=== PATIENT | male | born 1965 | race Caucasian/White ===

== ENCOUNTER 2022-03-04 06:14 | Outpatient (CLI) | payer OTHER | END 2022-03-04 06:15 | disposition critical access hospital (66) | LOC: EMS 06:14 | DX: R53.1 Weakness (principal); R20.0 Anesthesia of skin; R42 Dizziness and giddiness | CPT/HCPCS: A0425; A0427 ==

== ENCOUNTER 2022-03-04 06:26 | Emergency (ER) | payer OTHER ==
--- NOTE | 2022-03-04 06:37 | ED Physician Documentation ---
PD HPI FOCAL NEURO - Stated complaint Stated Complaint: Code Stroke - Additional information Additional information: Patient is 56-year-old male presenting With acute onset focal neurologic deficits.Last known well 30 this morning. Presents via EMS from home. States was taking his regular morning shower when he became acutely weak in his left upper, left lower extremity. Was unable to stand and fell in the shower. Uncertain whether or not he hit his head. He denies any loss of consciousness. Denies use of blood thinning medications. Reports it has been greater than 20 years since the last time he was seen by a physician. Review of Systems Ten Systems: 10 systems reviewed and negative Constitutional: denies: Fever Eyes: denies: Loss of vision Ears: denies: Loss of hearing Nose: denies: Rhinorrhea / runny nose Throat: denies: Dental pain / toothache Cardiac: denies: Chest pain / pressure Respiratory: denies: Dyspnea GI: denies: Abdominal Pain : denies: Dysuria Skin: denies: Rash Musculoskeletal: denies: Neck pain Neurologic: reports: Generalized weakness, Focal weakness, Numbness PD PAST MEDICAL HISTORY - Present Medications Home Medications: Ambulatory Orders Medication Instructions Recorded Confirmed No Known Home Medications 03/04/22 03/04/22 - Allergies Allergies/Adverse Reactions: Allergies Allergy/AdvReac Type Severity Reaction Status Date / Time No Known Drug Allergies Allergy Verified 03/04/22 06:36 PD ED PE NORMAL - Vitals Vital signs reviewed: Yes - General General: Alert and oriented X 3, No acute distress, Other (Morbidly obese) - HEENT HEENT: Atraumatic, PERRL, EOMI, Ears normal, Moist mucous membranes - Neck Neck: Supple, no meningeal sign, No bony TTP - Cardiac Cardiac: RRR, No gallop - Respiratory Respiratory: No respiratory distress - Abdomen Abdomen: Normal bowel sounds, Non tender - Male Male : Deferred - Rectal Rectal: Deferred - Back Back: No CVA TTP - Neuro Neuro: Alert and oriented X 3, 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 Extinction to sensation noted in the left upper and left lower extremity.) - Psych Psych: Normal mood NIHSS - Level of Consciousness Level of consciousness: (0) Alert, Keenly responsive LOC Questions: (0) Answers both Q's correct LOC Commands: (0) Performs both correctly - Gaze Best Gaze: (0) Normal - Visual Visual: (0) No loss - Facial Palsy Facial Palsy: (0) Normal, symmetrical movement - Motor Arms (both separate) Motor Arm (right): (0) No drift Motor Arm (left): (4) No movement - Motor Legs (both separate) Motor Leg (right): (0) No drift Motor Leg (left): (4) No movement - Limb Ataxia Limb Ataxia: (1) Present in 1 limb - Sensory Sensory: (2) Jnqtxt-fl-rieur loss - Best Language Best Language: (0) No aphasia - Dysarthria Dysarthria: (0) Normal - Extinction and Inattention (formally neg Extinction and inattention: (1) Visual,tactile,auditory,spatial, or personal inattention - Total Score/Results Total Score/Result: 12 Results - Vitals Vitals: Vital Signs - 24 hr 03/04/22 03/04/22 06:20 06:41 Temperature 35.8 C L Heart Rate 84 Respiratory 16 17 Rate Blood Pressure 173/96 H O2 Saturation 96 Oxygen O2 Source Room air - EKG (time done) 0657 Rate: Rate (enter#) (78) Rhythm: NSR [place]: Normal Intervals: Normal [place] QRS: Normal Ischemia: Normal ST segments Compare to prior EKG: Old EKG unavailable Computer interpretation: Agree with computer PD MEDICAL DECISION MAKING - ED course Complexity details: reviewed results, d/w patient, d/w managed services consultant ED course: Patient is 56-year-old male presenting to the emergency department with acute onset paralysis of his left upper and left lower extremity. Stroke alert initiated on arrival. CT head demonstrates left frontoparietal parenchymal bleed. EKG nonacute with regular sinus rhythm. Labs including renal function testing, INR pending. Case was discussed with telestroke service and per their recommendation metoprolol ordered for goal systolic blood pressure less than 140. At this time will be signing the patient out to the oncoming physician, please see their documentation for further detail. Departure - Departure Clinical Impression: Hemorrhagic stroke
[2022-03-04] MEDS ORDERED: METOPROLOL 5 MG/5 ML VIAL IVP STA ×2 (06:46→07:03)
[2022-03-04 07:05] LABS: INR 1.1 (0.8-1.2); PT - PROTHROMBIN TIME 12.3 secs (9.9-12.6)
[2022-03-04 07:11] LABS: ALBUMIN 4.2 g/dL (3.2-5.5); ALBUMIN/GLOBULIN RATIO 1.4 (1.0-2.2); ALKALINE PHOSPHATASE 79 IU/L (42-121); ALT ALANINE AMINOTRANSFERASE 35 IU/L (10-60); AST ASPARTATE AMINOTRANSFERASE 27 IU/L (10-42); BILIRUBIN,TOTAL 0.9 mg/dL (0.2-1.0); BUN - BLOOD UREA NITROGEN 18 mg/dL (6-20); CALCIUM 9.2 mg/dL (8.5-10.3); CARBON DIOXIDE - CO2 26 mmol/L (21-32); CHLORIDE 96 mmol/L (101-111); CREATININE 0.9 mg/dL (0.6-1.2); ETOH - ETHANOL < 5.0 mg/dL; GFR - MDRD 87 (>89); GLUCOSE 285 mg/dL (70-100); LIPASE 27 U/L (22-51); POTASSIUM 4.2 mmol/L (3.5-5.0); SODIUM 133 mmol/L (135-145); TOTAL PROTEIN 7.1 g/dL (6.7-8.2)
[2022-03-04 07:13] LABS: BASOPHILS # (AUTO) 0.1 10^3/uL (0.0-0.1); BASOPHILS % (AUTO) 0.7 %; EOSINOPHILS # (AUTO) 0.1 10^3/uL (0.0-0.7); EOSINOPHILS % (AUTO) 1.2 %; HCT - HEMATOCRIT 48.2 % (42.0-52.0); HGB - HEMOGLOBIN 16.1 g/dL (14.0-18.0); LYMPHOCYTES # (AUTO) 2.2 10^3/uL (1.5-3.5); LYMPHOCYTES % (AUTO) 21.3 %; MEAN CORPUSCULAR HEMOGLOBIN 28.9 pg (27.0-31.0); MEAN CORPUSCULAR HGB CONC 33.4 g/dL (32.0-36.0); MEAN CORPUSCULAR VOLUME 86.5 fL (80.0-94.0); MEAN PLATELET VOLUME 9.7 fL (7.4-11.4); MONOCYTES # (AUTO) 0.6 10^3/uL (0.0-1.0); NEUTROPHILS # (AUTO) 7.2 10^3/uL (1.5-6.6); NEUTROPHILS % (AUTO) 69.8 %; PLT - PLATELET COUNT 230 10^3/uL (130-450); RED BLOOD COUNT 5.57 10^6/uL (4.70-6.10); WHITE BLOOD COUNT 10.3 x10^3/uL (4.8-10.8)
[2022-03-04] MEDS ORDERED: NICARDIPINE HCL 25 MG in SODIUM CHLORIDE 0.9% 240 ML IV ONE (08:00)
[2022-03-04] MEDS ORDERED: NICARDIPINE HCL 25 MG in SODIUM CHLORIDE 0.9% 240 ML IV SCH (08:00)
--- NOTE | 2022-03-04 08:09 | CT Report ---
PROCEDURE: Head W/O Stroke Protocol INDICATIONS: Neuro deficit, acute, stroke suspected TECHNIQUE: Noncontrast 4.5 mm thick angled axial sections acquired from the foramen magnum to the vertex, with c oronal reformats. For radiation dose reduction, the following was used: automated exposure control, adjustment of mA and/or kV according to patient size. COMPARISON: None. FINDINGS: Image quality: Excellent. CSF spaces: Basal cisterns are patent. No extra-axial fluid collections. Ventricles are normal in size and shape. Brain: No midline shift. There is a moderate-sized acute intracranial, parenchymal hemorrhage involv ing the right frontoparietal lobe with adjacent vasogenic edema subtle leftward midline shift. No ass ociated ventriculomegaly. Image measures approximately 4.3 x 2.4 cm in axial cross sectional dimensio n and 3.6 cm in craniocaudal dimension. Dickens-white matter interface is normal. Skull and face: Calvarium and visualized facial bones are intact, without suspicious lesions. Sinuses: Visualized sinuses and mastoids are clear. IMPRESSION: Moderate-sized acute right frontoparietal parenchymal hemorrhage with associated vasogen ic edema and subtle leftward shift of midline structures. Findings are concordant with preliminary report by the overnight radiologist. The clinical team is al ready aware of the acute findings at time of study dictation. This study fulfills neurological imaging criteria for inclusion or exclusion of acute stroke therapie s based on available published neurological imaging guidelines. Reviewed by: Vinny Vinson MD on 03/04/2022 8:07 AM PDT Approved by: Vinny Vinson MD on 03/04/2022 8:07 AM PDT Station ID: [id number]
[2022-03-04 08:34] VITALS: BP 142/87
[2022-03-04 08:37] LABS: B. PARAPERTUSSIS- RESP PCR PAN NOT DETECTED; B. PERTUSSIS- RESP PCR PANEL NOT DETECTED; C. PNEUMONIAE- RESP PCR PANEL NOT DETECTED; CORONAVIRUS 229E-RESP PCR NOT DETECTED; CORONAVIRUS HKU1-RESP PCR NOT DETECTED; CORONAVIRUS NL63-RESP PCR NOT DETECTED; CORONAVIRUS OC43-RESP PCR NOT DETECTED; HUMAN METAPNEUMOVIRUS NOT DETECTED; INFLUENZA A- RESP PCR PANEL NOT DETECTED; INFLUENZA B - RESP PCR PANEL NOT DETECTED; M. PNEUMONIAE- RESP PCR PANEL NOT DETECTED; PARAINFLUENZA VIRUS 1 NOT DETECTED; PARAINFLUENZA VIRUS 2 NOT DETECTED; PARAINFLUENZA VIRUS 3 NOT DETECTED; PARAINFLUENZA VIRUS 4 NOT DETECTED; RHINOVIRUS/ENTEROVIRUS NOT DETECTED; RSV- RESP PCR PANEL NOT DETECTED; SARS-CoV-2 -RESP PCR PANEL NOT DETECTED
--- NOTE | 2022-03-04 09:16 | CT Report ---
PROCEDURE: ANGIO HEAD W/WO INDICATIONS: left sided paralysis CONTRAST: IV CONTRAST: Optiray 320 ml: 100 PO CONTRAST: *NO PO CONTRAST TECHNIQUE: Precontrast 4.5 mm thick angled axial sections acquired from the foramen magnum to the vertex. Afte r the administration of intravenous contrast, 1 mm thick sections acquired through the [place] of [place] is. Postcontrast 4.5 mm thick sections then re-acquired from the foramen magnum to the vertex. 3-di mensional kombeyt-vkddvskll-anueunbhnt (MIP) and/or volume rendering reformats were acquired of the c entral intracranial vasculature. For radiation dose reduction, the following was used: automated ex posure control, adjustment of mA and/or kV according to patient size. COMPARISON: CT head without contrast dated 03/04/2022 FINDINGS: Image quality: Excellent. Anterior circulation: Intracranial internal carotid arteries are normal in size and flow. The flow within the paired anterior cerebral arteries is normal and symmetric. The flow within the middle cer ebral arteries is normal and symmetric. The anterior communicating artery is seen. No aneurysms are seen. Posterior circulation: Distal right vertebral artery is diffusely diminutive. Normal caliber distal l eft vertebral artery. They join to form a normal basilar artery. Flow within the posterior cerebral a rteries is normal and symmetric. No aneurysms are seen. CSF spaces: Ventricles are normal in size and shape. Basal cisterns are patent. No extra-axial flu id collections. Brain: Acute right posterior frontoparietal hemorrhage measuring 4.1 x 2.0 x 4.4 cm. There is a focal high density round area within the area of parenchymal hemorrhage that is present during the CT jayce ogram, consistent with active extravasation into the area of hemorrhage. Reference image 107/5 and im age 124/12. Mass effect on the right lateral ventricle. Skull and face: Calvarium and facial bones appear intact, without suspicious lesions. Sinuses: Visualized sinuses and mastoids are clear. IMPRESSION: 1. Acute right posterior frontoparietal hematoma, with active extravasation during the CT angiogram. 2. Mass effect on the ipsilateral lateral ventricle. 3. Otherwise unremarkable CT angiogram of the head. Findings are concordant with preliminary interpretation provided by [facility]. Reviewed by: Ambrocio Salcedo MD on 03/04/2022 9:15 AM PDT Approved by: Ambrocio Salcedo MD on 03/04/2022 9:15 AM PDT Station ID: [id number]
--- NOTE | 2022-03-04 09:20 | CT Report ---
PROCEDURE: ANGIO NECK W INDICATIONS: Left sided paralysis CONTRAST: IV CONTRAST: Optiray 320 ml: 100 PO CONTRAST: *NO PO CONTRAST TECHNIQUE: After the administration of intravenous contrast, 1.5 mm axial sections acquired from the aortic arch to the [place] of [place]. Coronal 3-D maximum intensity projection (MIP) and/or volume rendering ref ormats were then performed. For radiation dose reduction, the following was used: automated exposur e control, adjustment of mA and/or kV according to patient size. COMPARISON: CTA head from the same date, in which there is a large posterior left frontotemporal acu te hemorrhage. FINDINGS: Image quality: Excellent. Carotid system: The great vessels demonstrate a conventional anatomy as they arise from the aortic a rch. The origins of the common carotid arteries appear patent. The common carotid arteries demonstr ate normal calibers and courses. The bifurcation regions appear normal bilaterally. The internal ca rotid arteries demonstrate normal caliber and course. Posterior circulation: The origins of the vertebral arteries appear patent. The more superior porti ons of the vertebral arteries demonstrate normal course and caliber. They join to form a normal appe aring basilar artery. Soft tissues: Visualized neck soft tissues demonstrate no suspicious abnormalities. Thyroid is unre markable. Bones: No suspicious bony lesions. Visualized cervical spine appears normally aligned. IMPRESSION: 1. Unremarkable CTA neck. Patent carotids. Comment: Please refer to separate report for CTA head. Findings are concordant with preliminary interpretation provided by [facility]. The estimate of stenosis included in the report of the imaging study was calculated using the NASCET method CLINICAL RECOMMENDATION STATEMENTS: In patients <35 years with an ITN detected on CT, MRI, or extrathyroidal ultrasound, the Committee re commends further evaluation with dedicated thyroid ultrasound if the nodule is "e1 cm and has no susp icious imaging features, and if the patient has normal life expectancy. In patients "e35 years with an ITN detected on CT, MRI, or extrathyroidal ultrasound, the Committee r ecommends further evaluation with dedicated thyroid ultrasound if the nodule is "e1.5 cm and has no s uspicious imaging features, and if the patient has normal life expectancy. (ACR, 2014) Reviewed by: Ambrocio Salcedo MD on 03/04/2022 9:19 AM PDT Approved by: Ambrocio Salcedo MD on 03/04/2022 9:19 AM PDT Station ID: [id number]
== END 2022-03-04 08:45 | disposition short-term general hospital (02) ==
LOC: ED 06:26
DX: I61.9 Nontraumatic intracerebral hemorrhage, unspecified (principal); Z20.822 Contact with and (suspected) exposure to COVID-19
CPT/HCPCS: 36415; 80053; 80320; 83690; 85025; 85610; 87633; 93005; 96374; 96375; 99284

== ENCOUNTER 2022-08-25 08:19 | Outpatient (CLI) | payer OTHER | END 2022-08-25 08:20 | disposition critical access hospital (66) | LOC: EMS 08:19 | DX: R56.9 Unspecified convulsions (principal) | CPT/HCPCS: A0425; A0429 ==

== ENCOUNTER 2022-08-25 08:35 | Emergency (ER) | payer OTHER ==
--- NOTE | 2022-08-25 08:48 | ED Physician Documentation ---
PD HPI SEIZURE - Stated complaint Stated Complaint: POST SZ - History obtained from History obtained from: Patient, EMS - Additional information Additional information: Patient is a 57-year-old male with a history of right sided intraparenchymal hemorrhage in February 2022 with residual left-sided deficits presenting for evaluation of a seizure. Patient was at home and per EMS his nephew noted that he had contracture of his left upper extremity and turned towards his left and was nonverbal for approximately 1 to 2 minutes. He appeared confused and postictal afterwards and at the time of EMS arrival was coming back to his baseline. EMS did not witness any other episodes. Patient denies recent illness or any trauma. He denies a headache. He denies chest pain, difficulty breathing, recent URI symptoms, vomiting, diarrhea or dysuria. On review of outside records, patient was seen by Dr. Renee Anaya with the [facility] stroke clinic on July 22, 2022.He presented in February 2022 with left-sided weakness and found to have a right frontoparietal intraparenchymal hemorrhage with an unclear etiology although hypertension was considered. He was started on antihypertensives and also found to be diabetic at that time. James n was to have a repeat MRI brain with and without contrast.Also plan to follow back up in 3 to 6 months. Review of Systems Constitutional: denies: Fever Cardiac: denies: Chest pain / pressure Respiratory: denies: Dyspnea GI: denies: Abdominal Pain : denies: Dysuria Musculoskeletal: denies: Back pain Neurologic: reports: Seizure PD PAST MEDICAL HISTORY - Past Surgical History Past Surgical History: No - Present Medications Home Medications: Ambulatory Orders Medication Instructions Recorded Confirmed Levetiracetam [Keppra] 1,000 mg PO BID #60 tablet 08/25/22 cephALEXin [Keflex] 500 mg PO Q6H #28 cap 08/25/22 - Allergies Allergies/Adverse Reactions: Allergies Allergy/AdvReac Type Severity Reaction Status Date / Time No Known Drug Allergies Allergy Verified 08/25/22 08:46 - Social History Does the pt smoke?: No Smoking Status: Never smoker Does the pt drink ETOH?: Yes Does the pt have substance abuse?: No - Immunizations Immunizations are current?: No - POLST Patient has POLST: No PD ED PE NORMAL - General General: Alert and oriented X 3, No acute distress, Well developed/nourished - HEENT HEENT: Atraumatic, PERRL, Moist mucous membranes, Pharynx benign (No signs of tongue bite or oral injury) - Neck Neck: Supple, no meningeal sign - Cardiac Cardiac: RRR - Respiratory Respiratory: No respiratory distress, Clear bilaterally - Abdomen Abdomen: Soft, Non tender, Non distended - Derm Derm: Warm and dry - Extremities Extremities: No deformity - Neuro Neuro: Alert and oriented X 3, 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 No: No motor deficit, No sensory deficit Results - Vitals Vitals: Vital Signs - 24 hr 08/25/22 08/25/22 08/25/22 08:46 08:54 13:46 Temperature 36.7 C 36.4 C L Heart Rate 91 84 81 Respiratory 18 22 20 Rate Blood Pressure 188/121 H 176/108 H 158/100 H O2 Saturation 100 98 100 08/25/22 08/25/22 14:19 16:00 Temperature Heart Rate 76 83 Respiratory 17 18 Rate Blood Pressure 154/90 H 150/95 H O2 Saturation 98 98 Oxygen O2 Source Room air - EKG (time done) 0856 Rate: Rate (enter#) (85) Rhythm: NSR Ischemia: No: ST elevation c/w ischemia - Labs Labs: Laboratory Tests 08/25/22 08/25/22 08/25/22 08:55 08:55 08:55 WBC 14.7 H RBC 5.53 Hgb 15.1 Hct 47.0 MCV 85.0 MCH 27.3 MCHC 32.1 RDW 13.2 Plt Count 284 MPV 8.6 Neut # (Auto) 10.9 H Lymph # (Auto) 2.4 Avery # (Auto) 0.8 Eos # (Auto) 0.4 Baso # (Auto) 0.1 Absolute Nucleated RBC 0.00 Nucleated RBC % 0.0 PT 12.2 INR 1.1 Sodium 137 Potassium 4.1 Chloride 103 Carbon Dioxide 24 Anion Gap 10.0 BUN 20 Creatinine 0.8 Estimated GFR (MDRD) 99 Glucose 146 H Calcium 9.2 Total Bilirubin 0.7 AST 16 ALT 13 Alkaline Phosphatase 77 Total Protein 7.6 Albumin 3.7 Globulin 3.9 Albumin/Globulin Ratio 0.9 L Urine Color Urine Clarity Urine pH Ur Specific Simpson Urine Protein Urine Glucose (UA) Urine Ketones Urine Occult Blood Urine Nitrite Urine Bilirubin Urine Urobilinogen Ur Leukocyte Esterase Urine RBC Urine WBC Urine WBC Clumps Ur Squamous Epith Cells Urine Bacteria Ur Microscopic Review Urine Culture Comments 08/25/22 09:50 WBC RBC Hgb Hct MCV MCH MCHC RDW Plt Count MPV Neut # (Auto) Lymph # (Auto) Avery # (Auto) Eos # (Auto) Baso # (Auto) Absolute Nucleated RBC Nucleated RBC % PT INR Sodium Potassium Chloride Carbon Dioxide Anion Gap BUN Creatinine Estimated GFR (MDRD) Glucose Calcium Total Bilirubin AST ALT Alkaline Phosphatase Total Protein Albumin Globulin Albumin/Globulin Ratio Urine Color YELLOW Urine Clarity SL. CLOUDY Urine pH 6.5 Ur Specific Simpson 1.020 Urine Protein NEGATIVE Urine Glucose (UA) NEGATIVE Urine Ketones NEGATIVE Urine Occult Blood TRACE-INTA Urine Nitrite POSITIVE H Urine Bilirubin NEGATIVE Urine Urobilinogen 0.2 (NORMAL) Ur Leukocyte Esterase SMALL H Urine RBC 0-5 Urine WBC >25 H Urine WBC Clumps PRESENT Ur Squamous Epith Cells NONE SEEN Urine Bacteria Many H Ur Microscopic Review INDICATED Urine Culture Comments INDICATED PD Medical Decision Making - ED course Complexity details: reviewed results, re-evaluated patient, d/w patient, d/w family (Patient's nephew) ED course: Patient was evaluated after a seizure. He has returned to his baseline and has not had further episodes while here. His vital signs have appeared stable. On exam he continues to have left-sided weakness which is residual from his prior stroke and does not have any new deficits. His labs were obtained and significant for urine analysis concerning for infection. Per the nephew, patient was treated for an infection in the urine when he had his stroke last February. Patient denies dysuria but does report having some urinary frequency. I feel this is important to treat at this time as infection could have lowered his seizure threshold at least until the urine culture returns. A CT scan of the brain was obtained Which I reviewed and shows an area of edema and MRI was recommended. His outpatient neurologist had also wanted an MRI with and without contrast and so I felt it to be important to obtain today to rule out an underlying mass which could have caused his seizure today.The MRI was obtained and I did review the findings with [facility] neurology.Patient was given a loading dose of Keppra and continued on Keppra as an outpatient. He will follow-up with his neurologist. His nephew who helps care for him and goes to his appointments was also present for the majority of our conversations and understands the discharge instructions. He is also advised on seizure precautions with no driving, swimming, bathing alone.Patient and nephew are counseled on concerning symptoms to return for. 1455 - Discussed with Dr. Jace Moreira of [facility] neurology. Reviewed patient's past history including hemorrhagic stroke, residual deficits and today's story with first-time seizure. Also reviewed MRI results and images were pushed to [facility] for Dr. Moreira to also review. He recommends giving the patient a loading dose of Keppra of 3 g and then having the patient continue on 1000 mg twice daily. He has also reviewed the MRI and at this time does not feel patient needs transfer or other intervention. He recommends having close follow-up with patient's neurologist and he will also pass on a message to Dr. Anaya. - Consults Consults: Consulted (name) (Dr. Jace Moreira ([facility] neurology)) Departure - Departure Disposition: 01 Home, Self Care Clinical Impression: New onset seizure, Urinary tract infection Condition: Stable Instructions: ED Seizure New Onset Unk Cause, ED UTI Cystitis Male Prescriptions: cephALEXin [Keflex] 500 mg PO Q6H #28 cap Levetiracetam [Keppra] 1,000 mg PO BID #60 tablet Comments: You were evaluated after a first-time seizure. This could be from your hemorrhagic stroke. After obtaining an MRI I did review the images with a neurologist at [facility] named Dr. Moreira. Based on his recommendations we have started you on an antiseizure medications called Keppra. You will take this twice a day. You should also have close follow-up with your neurologist, Dr. Anaya. Your urine is also concerning for an infection which may have lowered your seizure threshold and so I am going to treat you with an antibiotic.If it anytime you have any new or worsening symptoms please consider return to the ER. Because you have had a seizure I would not recommend driving. I would also recommend not swimming or taking a bath in a bathtub alone until you are cleared by a neurologist. I have sent your prescriptions to [facility] in [place]. MRI RESULTS IMPRESSION: Linear focal enhancement with surrounding old blood products, gliosis and cystic encephalomalacia in the posterior right parietal lobe. Possible peripheral cerebral edema present, but no sulcal effacement, mass effect or midline shift. Consider 3-4 month follow-up to assess for interval change. MR spectroscopy could also further evaluate if available
[2022-08-25 09:00] LABS: BASOPHILS # (AUTO) 0.1 10^3/uL (0.0-0.1); BASOPHILS % (AUTO) 0.4 %; EOSINOPHILS # (AUTO) 0.4 10^3/uL (0.0-0.7); HGB - HEMOGLOBIN 15.1 g/dL (14.0-18.0); LYMPHOCYTES # (AUTO) 2.4 10^3/uL (1.5-3.5); LYMPHOCYTES % (AUTO) 16.3 %; MEAN CORPUSCULAR HEMOGLOBIN 27.3 pg (27.0-31.0); MEAN CORPUSCULAR HGB CONC 32.1 g/dL (32.0-36.0); MEAN PLATELET VOLUME 8.6 fL (7.4-11.4); MONOCYTES # (AUTO) 0.8 10^3/uL (0.0-1.0); MONOCYTES % (AUTO) 5.5 %; NEUTROPHILS # (AUTO) 10.9 10^3/uL (1.5-6.6); NEUTROPHILS % (AUTO) 74.4 %; PLT - PLATELET COUNT 284 10^3/uL (130-450); RED BLOOD COUNT 5.53 10^6/uL (4.70-6.10); RED CELL DISTRIBUTION WIDTH 13.2 % (12.0-15.0); WHITE BLOOD COUNT 14.7 x10^3/uL (4.8-10.8)
[2022-08-25 09:08] LABS: INR 1.1 (0.8-1.2); PT - PROTHROMBIN TIME 12.2 secs (9.9-12.6)
[2022-08-25 09:12] LABS: POTASSIUM 4.1 mmol/L (3.5-5.0)
[2022-08-25 09:13] LABS: ALBUMIN 3.7 g/dL (3.2-5.5); ALBUMIN/GLOBULIN RATIO 0.9 (1.0-2.2); BILIRUBIN,TOTAL 0.7 mg/dL (0.2-1.0); CALCIUM 9.2 mg/dL (8.5-10.3); CREATININE 0.8 mg/dL (0.6-1.2); TOTAL PROTEIN 7.6 g/dL (6.7-8.2)
--- NOTE | 2022-08-25 09:34 | XRAY Report ---
PROCEDURE: Chest 1 View X-Ray INDICATIONS: seizure TECHNIQUE: One view of the chest was acquired. COMPARISON: None. FINDINGS: Surgical changes and devices: None. Lungs and pleura: No pleural effusions or pneumothorax. Lungs are clear. Mediastinum: Mediastinal contours appear normal. Heart size is normal. Bones and chest wall: No suspicious bony lesions. Overlying soft tissues appear unremarkable. IMPRESSION: No evidence of acute pulmonary process. Reviewed by: Ambrocio Salcedo MD on 08/25/2022 9:32 AM [facility] Approved by: Ambrocio Salcedo MD on 08/25/2022 9:32 AM [facility] Station ID: [id number]
--- NOTE | 2022-08-25 09:54 | CT Report ---
PROCEDURE: HEAD WO INDICATIONS: h/o hemorrhagic CVA; new onset seizure TECHNIQUE: Noncontrast 4.5 mm thick angled axial sections acquired from the foramen magnum to the vertex. For r adiation dose reduction, the following was used: automated exposure control, adjustment of mA and/or kV according to patient size. COMPARISON: 03/04/2022. FINDINGS: Image quality: Excellent. CSF spaces: Basal cisterns are patent. No extra-axial fluid collections. Ventricles are normal in size and shape. Brain: No midline shift. No intracranial masses or hemorrhage. There is abnormality in the right fr ontal region and parietal region which appears to represent vasogenic edema which is wider spread cristina n on the previous study, which contain hemorrhage. Findings are suspicious for possible occult intrac ranial mass. No acute hemorrhage. Skull and face: Calvarium and visualized facial bones are intact, without suspicious lesions. Sinuses: Visualized sinuses and mastoids are clear. IMPRESSION: 1. The appearance of the para midline right posterior frontal lobe and parietal lobe is suspicious fo r vasogenic edema. Question underlying occult mass. Comment: Recommend brain MRI with and without contrast if there are no contraindications. If there ar e contraindications to MRI, would recommend CT head with contrast. Reviewed by: Ambrocio Salcedo MD on 08/25/2022 9:52 AM [facility] Approved by: Ambrocio Salcedo MD on 08/25/2022 9:52 AM PST Station ID: [id number]
[2022-08-25 10:03] LABS: BILIRUBIN,URINE NEGATIVE (NEGATIVE); GLUCOSE, URINE (UA) NEGATIVE (NEGATIVE); KETONES,URINE (UA) NEGATIVE (NEGATIVE); LEUKOCYTE ESTERASE, URINE SMALL (NEGATIVE); NITRITE,URINE POSITIVE (NEGATIVE); OCCULT BLOOD,URINE TRACE-INTA (NEGATIVE); PH,URINE 6.5 PH (5.0-7.5); PROTEIN,URINE NEGATIVE (NEGATIVE); UROBILINOGEN,URINE 0.2 (NORMAL) E.U./dL (NORMAL)
[2022-08-25 10:13] LABS: CLARITY,URINE SL. CLOUDY (CLEAR); RBC,URINE 0-5 /HPF (0-5); SQUAMOUS EPITHELIAL CELL,UR NONE SEEN (<= Few); WBC CLUMPS,URINE PRESENT; WBC,URINE >25 /HPF (0-3)
[2022-08-25 10:14] LABS: BACTERIA,URINE Many /HPF (None Seen)
[2022-08-25] MEDS ORDERED: GADOBUTROL 15 MMOL/15 ML VIAL ONE (11:55)
--- NOTE | 2022-08-25 13:36 | MRI Report ---
PROCEDURE: MRI brain with and without contrast INDICATIONS: 57-year-old male with new onset seizure and history of hemorrhagic infarct CONTRAST: gadavist 10.3ml TECHNIQUE: Noncontrast axial T1 spin echo, axial T2 fast spin echo, sagittal and axial FLAIR, coronal T2 fast sp in echo, axial gradient echo, axial diffusion and ADC through the brain. After the administration of contrast, axial and coronal T1 spin echo with fat saturation through the brain. COMPARISON: CT/CTA brain 03/04/2022, CT brain 08/25/2022 FINDINGS: Image quality: Excellent. CSF spaces: Basal cisterns are patent. No extra-axial fluid collections. Ventricles are normal in size and shape. Brain: Corresponding with the previous right posterior parietal hemorrhage, there is mannie old blood products, surrounding gliosis and cystic encephalomalacia. At the center of the gliosis, there is linear enhancement measuring 3.5 x 0.6 cm. No mass effect or midline shift. Ventricles unremarkabl e. Underlying cerebral and cerebellar atrophy and multifocal white matter chronic ischemic change Skull and face: Calvarial marrow is normal in signal. Orbits appear normal. Sinuses: Sinuses and mastoids appear clear. IMPRESSION: Linear focal enhancement with surrounding old blood products, gliosis and cystic encephalomalacia in the posterior right parietal lobe. Possible peripheral cerebral edema present, but no sulcal effaceme nt, mass effect or midline shift. Consider 3-4 month follow-up to assess for interval change. MR spec troscopy could also further evaluate if available Reviewed by: Colton Perez MD on 08/25/2022 12:34 PM [facility] Approved by: Colton Perez MD on 08/25/2022 12:34 PM [place] Station ID: [id number]
[2022-08-25] MEDS ORDERED: levETIRAcetam INJ 3,000 MG in SODIUM CHLORIDE 0.9% 100ML 100 ML IV STA (14:53)
[2022-08-25] MEDS ORDERED: cefTRIAXone 1 GM in SODIUM CHLORIDE 0.9% MINIBAG 100 ML IV STA (15:07)
[2022-08-25] MEDS ORDERED: GADOBUTROL 15 MMOL/15 ML VIAL IVP ONE (15:27)
[2022-08-25] MEDS ORDERED: NAPROXEN 250 MG TABLET PO STA (16:49)
[2022-08-25 17:49] VITALS: BP 145/87
== END 2022-08-25 17:51 | disposition home or self-care (01) ==
LOC: EDUNIT# → ED 08:35
DX: R56.9 Unspecified convulsions (principal); N39.0 Urinary tract infection, site not specified
CPT/HCPCS: 36415; 70450; 70553; 71045; 80053; 81001; 85025; 85610; 87086; 93005; 96365; 96367; 99284; A9270; A9585; 81003; 87181

== ENCOUNTER 2023-06-17 09:45 | Outpatient (CLI) | payer OTHER ==
--- NOTE | 2023-06-17 10:55 | Sleep Patient Instructions ---
Sleep Center Visit Summary - Patient Visit Information Reason for Visit: Initial consult for evaluation of sleep disordered breathing and other sleep issues. - Patient Instructions Instructions Attached: Sleep Study, Sleep Study Home Monitor Additional Instructions: You will be completing a sleep study, either an in-lab polysomnography (PSG) or home sleep study (HST). You will follow-up in the sleep care office after the sleep study is completed to hear the results and talk about therapy, if needed. You will be called by our office staff to schedule this appointment, but you may contact us with any questions. - Clinic Information Contact: [facility] [address] [place] [id number] [email or web address] T: [phone]
--- NOTE | 2023-06-17 11:02 | SLEEP CARE CONSULTATION ---
Information from patient questionnaire entered by Ambreen Melendez. I have reviewed and concur with the information entered by Ambreen Melendez. This document represents the service I personally performed and the decisions made by me, Luz Johns ARNP. History of Present Illness Service Date and Time: 06/17/2023 0945 Reason for Visit: New patient Accompanied by: morgan Ramos Chief Complaint: reports: Unrefreshed sleep, Snoring, Observed pauses in breathing Date of Onset: snoring before but fatigue increased in last 1 + years Usual bedtime: 2200 Time it takes to fall asleep: NOT LONG Snores at night: Yes Observed to quit breathing while asleep: Yes Number of times waking at night: 2-3 Reasons for waking at night: reports: Bathroom, Other (UNKNOWN, NOISE). denies: Choking, Gasping for air Toss, Turn, or Twitch while sleeping: Yes Recalls having dreams: Yes Usually gets out of bed at: 0330, 0800 Feels refreshed in the morning: No Morning headache: No Sleepy or fatigued during the day: Yes Ever fallen asleep while driving: No (not driving right now) Takes day naps: Yes (no intentionally naps; unintentional naps often) Dreams during day naps: Yes Prior sleep studies: No Additional HPI information: I had the pleasure of seeing MADI RIVERA today regarding the possibility of him having a sleep disorder. His nephew, Richard, is here with him because he cannot drive and is his caregiver. His current complaints are observed pauses in breathing, snoring and unrefreshed sleep. He had a stroke last year, February 2022 and a seizure, August 2022. He had surgery on hip this year too. [facility]. His is snoring loudly according to nephew who lives with him. His nephew has heard him stop breathing and gasp in his sleep. His nephew does have sleep apnea and is on a CPAP. He has heard himself snore but denies waking up choking or gasping for air. He is getting up multiple times a night. He will fall asleep unintentionally when tameka. He gets tired during the day. 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 Patient is Single and lives in [place]. Have you smoked in the past 12 months: No Alcohol use: Yes Alcohol amount and frequency: RARELY Caffeine use: Yes Caffeine amount and frequency: 6OZ DAILY Family History Family history of sleep disordered breathing: Yes Family Hx Sleep Apnea: Father: Snoring, Sibling: Snoring Allergies and Home Medications Known drug allergies: No Drug allergies reviewed: Yes Home medication list reviewed: Yes Allergy and home medication list: Allergies No Known Drug Allergies Allergy (Verified 06/16/23 15:53) Home Medications Medication Instructions Recorded Confirmed Last Taken Type Levetiracetam [Keppra] 1,000 mg PO BID #60 tablet 08/25/22 06/17/23 Unknown Rx DULoxetine [Cymbalta] See Rx Instructions .ROUTE .COMPLEX 06/17/23 06/17/23 Unknown History Gabapentin See Rx Instructions .ROUTE .COMPLEX 06/17/23 06/17/23 Unknown History Lisinopril [Zestril] See Rx Instructions .ROUTE .COMPLEX 06/17/23 06/17/23 Unknown History metFORMIN [Glucophage] See Rx Instructions .ROUTE .COMPLEX 06/17/23 06/17/23 Unknown History Review of Systems Weight loss over past 5 years: 50, since stroke Cardiovascular: reports: high blood pressure Gastrointestinal: denies: heartburn Urinary: reports: impotence Neurological: reports: seizure, gait or balance problems. denies: headaches Psychiatric: reports: depression Ear/Nose/Throat: reports: dry mouth/throat. denies: tonsillectomy Endocrine: reports: sluggishness Musculoskeletal: reports: mobility problems Immunologic: reports: itching Physical Exam Vital signs obtained and entered by: AMBREEN Goldsmith MA Blood Pressure: 148/100 (RIGHT ARM) Cuff size: regular Heart Rate: 105 O2 Saturation: 93 Height: 5 ft 9 in Weight: 217 lb Body Mass Index: 32.0 BMI Classification: Obese Neck circumference: 18.5 Mouth and throat: narrow oropharynx Soft palate: long Hard palate: normal Uvula: normal Uvula visualization: 50% Mallampati Class II Tongue: enlarged in size with teeth lay on lateral edges Tonsils: 2+ Neck: normal w/o lymphadenopathy or thyromegaly Heart: regular rate and rhythm Lungs: clear bilaterally Impression and Plan 1. Suspected Obstructive Sleep Apnea-Hypopnea Syndrome, as suggested by a history of loud and irregular snoring, observed cessation of breath while asleep, gasping or choking in sleep and unrefreshed sleep. Narrow oropharynx and obesity are common predisposing factors for obstructive sleep apnea-hypopnea syndrome. I recommend proceeding to polysomnography to confirm the diagnosis and to assess severity. If the patient has significant sleep disordered breathing, a manual CPAP titration study will also be performed to find the optimal treatment pressure. I informed the patient of what the sleep studies involve and after some discussion, obtained agreement to proceed. The pathophysiology of obstructive sleep apnea-hypopnea syndrome was discussed with the patient and health risks of cardiovascular and cerebrovascular disease if not treated. Risks of drowsy driving discussed in detail and patient advised to avoid long distance driving and to heat treat puller at the first sign of drowsiness. Patient agreed to plan. * Schedule polysomnography. * Avoid long distance driving or driving when feeling sleepy. * Avoid alcohol, sedative and muscle relaxant around bedtime. * Attempt to lose weight. * Review instructions provided by trained office staff on how to prepare for the sleep study. * Return for follow-up after sleep study completed. Counseling Topics: Weight loss health impact Plan: HST Visit Type: In Office Time Spent with Patient (minutes): 31 Provider Statement: I spent 100% of the Face to Face Visit with the patient with greater than 50% spent counseling the patient and coordination of care.
[2023-06-17 11:09] VITALS: BP 148/100; O2SAT 93
== END 2023-06-17 09:46 | disposition home or self-care (01) ==
LOC: SC 09:45
PROVIDERS: ATTEND Nurse Practitioner Family
DX: R06.83 Snoring (principal); G47.8 Other sleep disorders; R06.81 Apnea, not elsewhere classified; R53.83 Other fatigue; E11.9 Type 2 diabetes mellitus without complications; I10 Essential (primary) hypertension; R56.9 Unspecified convulsions; F32.A Depression, unspecified; E66.9 Obesity, unspecified; Z68.32 Body mass index [BMI] 32.0-32.9, adult; Z79.84 Long term (current) use of oral hypoglycemic drugs
CPT/HCPCS: 99203; 99212

== ENCOUNTER 2023-07-05 12:24 | Outpatient (CLI) | payer OTHER | END 2023-07-05 12:25 | disposition home or self-care (01) | LOC: SC 12:24 | PROVIDERS: ATTEND Nurse Practitioner Family | DX: G47.33 Obstructive sleep apnea (adult) (pediatric) (principal); R09.02 Hypoxemia; E66.9 Obesity, unspecified; Z68.32 Body mass index [BMI] 32.0-32.9, adult | CPT/HCPCS: 95806 ==

== ENCOUNTER 2023-07-14 10:41 | Outpatient (CLI) | payer OTHER ==
--- NOTE | 2023-07-14 11:12 | Sleep Patient Instructions ---
Sleep Center Visit Summary - Patient Visit Information Reason for Visit: Sleep study follow-up - Patient Instructions Instructions Attached: CPAP Additional Instructions: You are being started on CPAP therapy with pressure setting at 5-20 cmH2O. You will need to call the sleep care office to set up your follow up once you have your APAP machine and we will schedule a visit to check compliance and response to therapy at that time. You may call the office with any concerns about pressure feeling too low or too much for adjustment, if needed. You should contact DME supplier for any questions or concerns about mask or equipment. I have also ordered a titration study and someone will call you to setup this study. Please call office to schedule a follow up appointment in the sleep care office one month after obtaining new device. - Clinic Information Contact: [facility] [address] [place] [address] [email or web address] T: [phone]
--- NOTE | 2023-07-14 11:16 | SLEEP CARE CONSULTATION ---
Information from patient questionnaire entered by Ambreen Melendez. I have reviewed and concur with the information entered by Ambreen Melendez. This document represents the service I personally performed and the decisions made by me, Luz Johns ARNP. History of Present Illness Service Date and Time: 07/14/2023 1041 Accompanied by: Thao Initial [place] Sleepiness Scale score: 6 (06/17/23) Current [place] Sleepiness Scale score: 5 Additional HPI information: MADI RIVERA returns for follow up and results of the recently performed home sleep study. The sleep study showed very severe obstructive sleep apnea with an average AHI of 73 and stefania oxygen saturation of 57%. I explained the pathophysiology behind obstructive sleep apnea. We then spent quite a bit of time discussing different treatment options. For mild obstructive sleep apnea, surgery and oral appliance are alternatives to nasal CPAP therapy but in moderate or severe cases, nasal CPAP is the most effective and reliable treatment. I reviewed the impact of weight changes on sleep apnea and strongly recommended losing weight. After some discussion, the patient opted to go with the nasal CPAP therapy. Nasal autoCPAP set at 5-20 cmH20 will be ordered with rationale explained. A manual titration study will be ordered if unable to find optimal pressure with office adjustments. I explained how CPAP machine works and what to expect when using the machine. Using CPAP every night in order to get used to it was emphasized. Patient advised to put CPAP mask on before getting into bed so as not to fall asleep without CPAP. To assist acclimation to CPAP use, it could also be used for a short time during day while reading or watching TV. The patient was instructed to call the CPAP supplier to discuss any mechanical problem that may occur. If the mask given is uncomfortable or is difficult to keep on through the night even with adjustment, contact the CPAP supplier as many will replace with another mask style if notified before 30 days. If snoring or perceives is not getting enough air or too much air from the machine, notify this office. Patient counseled not drink alcohol less than 4 hours before bedtime as it can increase snoring and apnea. Patient was cautioned about risks of drowsy driving until sleepiness symptoms resolve. Patient denies drowsy driving. He is not driving since his stroke. Sleep Study - Results Type of Sleep Study: Home sleep study (COMPLETED 07/05/23) Prior sleep studies: No Polysomnography/Home Sleep Study results: Physician Impression: The quality of the study is good. The length of the study is adequate (> 240 minutes). Please also see the tabulated and graphic data. 1. Obstructive Sleep Apnea-Hypopnea (ICD-10 G47.33), very severe, with an AHI of 73.0/hr and stefania SaO2 of 57%. During the study, the patient had 685 apneas (685 obstructive, 0 central, 0 mixed) and 25 hypopneas. The longest episode lasted 78.0 seconds. The patient only slept s upine during this study (supine AHI was 73.0 and non-supine, 0.00). 2. Hypoxemia (ICD-10 R09.02), severe, with the lowest oxygen saturation of 57 % and 377.7 minutes with SaO2 under 90%. Baseline oxygen saturation was also low (Average oxygen saturation was 83%). Allergies and Home Medications Known drug allergies: No Drug allergies reviewed: Yes Home medication list reviewed: Yes (no changes) Allergy and home medication list: Allergies No Known Drug Allergies Allergy Review of Systems Review of systems same as previous: Yes (no changes) Physical Exam Vital signs obtained and entered by: ANDRES FALCON Blood Pressure: 150/94 Cuff size: wrist (right) Heart Rate: 104 O2 Saturation: 98 Height: 5 ft 9 in Weight: 210 lb Body Mass Index: 31.0 BMI Classification: Obese Impression and Plan 1. Obstructive Sleep Apnea-Hypopnea Syndrome, very severe, with lowest oxygen saturation of 57%. Obviously this is the cause of the patients symptoms of unrefreshed sleep, and excessive daytime sleepiness. Positive pressure therapy could benefit hypertension, cerebrovascular disease (stroke), diabetes, depression and history of seizures. As mentioned above, the patient will be started on nasal autoCPAP therapy with pressure set at 5-20 cmH2O. A manual tit ration study will be completed to find optimal treatment pressure and to make sure his oxygen levels improve (which were severe) with CPAP treatment. Compliance guidelines also reviewed. A copy of compliance guidelines will be given for reference at check out. Because the apnea is more severe supine, I instructed to avoid sleeping supine using pillow positioning until able to start CPAP use. 2. Hypoxemia, severe, with a stefania oxygen saturation of 57% and 377.7 minutes spent under 90%. The baseline oxygen saturation was low normal with an average oxygen saturation of 83%. 3. Obesity, unspecified. Currently patients BMI is 31. Obesity increases the risk of apnea, CPAP pressure requirements and overall health risks especially cardiovascular and diabetes. Thus patient is advised to lose weight. * Nasal auto CPAP therapy, pressure at 5-20 cm H2O. * Titration study * Attempt to lose weight. * Avoid alcohol consumption near bedtime. * Avoid supine sleep until using CPAP. * The patient is again cautioned about driving until sleepiness completely resolves. * Return one month after CPAP obtained or after titration study completed. I will assess response to therapy and compliance at that time. Counseling Topics: Weight loss health impact Prescriptions: Auto CPAP Follow up with Sleep Care in: other (after CPAP setup or titration study) Visit Type: In Office Time Spent with Patient (minutes): 28 Provider Statement: I spent 100% of the Face to Face Visit with the patient with greater than 50% spent counseling the patient and coordination of care.
[2023-07-14 11:21] VITALS: BP 150/94; O2SAT 98
== END 2023-07-14 10:42 | disposition home or self-care (01) ==
LOC: SC 10:41
PROVIDERS: ATTEND Nurse Practitioner Family
DX: G47.33 Obstructive sleep apnea (adult) (pediatric) (principal); R09.02 Hypoxemia; Z68.31 Body mass index [BMI] 31.0-31.9, adult
CPT/HCPCS: 99212; 99213

== ENCOUNTER 2023-07-14 18:25 | Outpatient (CLI) | payer OTHER | END 2023-07-14 18:26 | disposition critical access hospital (66) | LOC: EMS 18:25 | DX: R20.2 Paresthesia of skin (principal) | CPT/HCPCS: A0425; A0429 ==

== ENCOUNTER 2023-07-14 18:41 | Emergency (ER) | payer OTHER ==
--- NOTE | 2023-07-14 18:58 | ED Physician Documentation ---
PD HPI FOCAL NEURO - Stated complaint Stated Complaint: L ARM/LEG NUMBNESS - Chief complaint Chief Complaint: Neuro - History obtained from History obtained from: Patient - Additional information Additional information: He had a right frontal parietal intracranial hemorrhage in February 2022. Sent to [facility] and treated conservatively. In August of last year had a seizure and is maintained on Keppra for same. He still has significant deficits from the prior stroke, he is mostly bedbound and has minimal use of the left leg, left arm is better but not quite right. Today around 4:00 developed some new numbness in the left arm and leg which is now gone. PD PAST MEDICAL HISTORY - Past Surgical History Past Surgical History: No - Present Medications Home Medications: Ambulatory Orders Medication Instructions Recorded Confirmed Levetiracetam [Keppra] 1,000 mg PO BID #60 tablet 08/25/22 06/17/23 DULoxetine [Cymbalta] See Rx Instructions .ROUTE .COMPLEX 06/17/23 06/17/23 Gabapentin See Rx Instructions .ROUTE .COMPLEX 06/17/23 06/17/23 Lisinopril [Zestril] See Rx Instructions .ROUTE .COMPLEX 06/17/23 06/17/23 metFORMIN [Glucophage] See Rx Instructions .ROUTE .COMPLEX 06/17/23 06/17/23 - Allergies Allergies/Adverse Reactions: Allergies Allergy/AdvReac Type Severity Reaction Status Date / Time No Known Drug Allergies Allergy Verified 07/14/23 18:51 - Social History Does the pt smoke?: No Smoking Status: Never smoker Does the pt drink ETOH?: Yes Does the pt have substance abuse?: No - Immunizations Immunizations are current?: No - POLST Patient has POLST: No PD ED PE NORMAL - Vitals Vital signs reviewed: Yes - General General: Alert and oriented X 3, No acute distress - HEENT HEENT: PERRL, EOMI - Neck Neck: Supple, no meningeal sign, No bony TTP - Cardiac Cardiac: RRR, No murmur - Respiratory Respiratory: No respiratory distress, Clear bilaterally - Abdomen Abdomen: Non tender - Derm Derm: Normal color, Warm and dry - Neuro Neuro: Alert and oriented X 3 Eye Opening: Spontaneous Motor: Obeys Commands Verbal: Oriented GCS Score: 15 NIHSS - Time Time: 18:55 - Level of Consciousness Level of consciousness: (0) Alert, Keenly responsive LOC Questions: (0) Answers both Q's correct LOC Commands: (0) Performs both correctly - Gaze Best Gaze: (0) Normal - Visual Visual: (0) No loss - Facial Palsy Facial Palsy: (0) Normal, symmetrical movement - Motor Arms (both separate) Motor Arm (right): (0) No drift Motor Arm (left): (0) No drift - Motor Legs (both separate) Motor Leg (right): (0) No drift Motor Leg (left): (2) Some effort against gravity - Limb Ataxia Limb Ataxia: (0) Absent - Sensory Sensory: (0) Normal - Best Language Best Language: (0) No aphasia - Dysarthria Dysarthria: (0) Normal - Extinction and Inattention (formally neg Extinction and inattention: (0) No abnormality - Total Score/Results Total Score/Result: 2 Results - Vitals Vitals: Vital Signs - 24 hr 07/14/23 07/14/23 18:46 21:11 Temperature 36.2 C L Heart Rate 90 99 Respiratory 19 12 Rate Blood Pressure 197/116 H 152/92 H O2 Saturation 95 94 Oxygen O2 Source Room air - EKG (time done) 1922 EKG releavant findings:: EKG personally interpreted by author of this note. Relevant findings are: Rate: Rate (enter#) (87) Rhythm: NSR [place]: Normal QRS: LVH Ischemia: Other (Strain dt LVH) Computer interpretation: Agree with computer - Labs Labs: Laboratory Tests 07/14/23 07/14/23 07/14/23 19:04 19:04 19:04 WBC 14.1 H RBC 5.66 Hgb 15.7 Hct 48.1 MCV 85.0 MCH 27.7 MCHC 32.6 RDW 13.2 Plt Count 261 MPV 8.8 Neut # (Auto) 9.9 H Lymph # (Auto) 3.0 [place] # (Auto) 0.8 Eos # (Auto) 0.3 Baso # (Auto) 0.1 Absolute Nucleated RBC 0.00 Nucleated RBC % 0.0 PT 12.5 INR 1.2 Sodium 137 Potassium 3.9 Chloride 101 Carbon Dioxide 27 Anion Gap 9.0 BUN 16 Creatinine 0.9 Estimated GFR (MDRD) 86 L Glucose 148 H Calcium 9.8 Total Bilirubin 0.6 AST 13 ALT 18 Alkaline Phosphatase 93 Total Protein 7.6 Albumin 4.5 Globulin 3.1 Albumin/Globulin Ratio 1.5 Lipase 27 - Rads (name of study) CT Head/CTA head - NAD, old vasogenic edema3 Relevant Findings:: Final report received, EMP independent interpretation of test PD Medical Decision Making - ED course ED course: His exam is back to his baseline, this is consistent with potential TIA versus postictal period from a focal seizure given the distribution on the opposite side of prior brain damage from intraparenchymal hemorrhage. Imaging showed no new or worrisome findings. He did have findings from his old injury. He continued to have occasional paresthesias just in the forearm lasting only 5 seconds. No seizure activity. This is really not consistent with TIA. I offered to call his neurologist at [facility] to consult but I did discuss with him that I did not think it was anything serious at that point and he declined and requested discharge. Departure - Departure Disposition: 01 Home, Self Care Clinical Impression: Paresthesia of arm Condition: Good Record reviewed to determine appropriate education?: Yes Instructions: ED Paraesthesias Comments: Not clear what is causing the paresthesia of your arm. Reasonable for you to call your neurologist and discuss. Return for new or worsening symptoms. Continue current medications. Forms: PCP List
[2023-07-14 19:13] LABS: BASOPHILS # (AUTO) 0.1 10^3/uL (0.0-0.1); BASOPHILS % (AUTO) 0.5 %; EOSINOPHILS # (AUTO) 0.3 10^3/uL (0.0-0.7); EOSINOPHILS % (AUTO) 2.1 %; HCT - HEMATOCRIT 48.1 % (42.0-52.0); HGB - HEMOGLOBIN 15.7 g/dL (14.0-18.0); LYMPHOCYTES % (AUTO) 20.9 %; MEAN CORPUSCULAR HEMOGLOBIN 27.7 pg (27.0-31.0); MEAN CORPUSCULAR HGB CONC 32.6 g/dL (32.0-36.0); MEAN PLATELET VOLUME 8.8 fL (7.4-11.4); MONOCYTES # (AUTO) 0.8 10^3/uL (0.0-1.0); MONOCYTES % (AUTO) 5.5 %; NEUTROPHILS # (AUTO) 9.9 10^3/uL (1.5-6.6); NEUTROPHILS % (AUTO) 70.4 %; PLT - PLATELET COUNT 261 10^3/uL (130-450); RED BLOOD COUNT 5.66 10^6/uL (4.70-6.10); RED CELL DISTRIBUTION WIDTH 13.2 % (12.0-15.0); WHITE BLOOD COUNT 14.1 x10^3/uL (4.8-10.8)
[2023-07-14 19:21] LABS: INR 1.2 (0.8-1.2); PT - PROTHROMBIN TIME 12.5 secs (9.9-12.6)
[2023-07-14 19:27] LABS: ALBUMIN 4.5 g/dL (3.2-5.5); ALBUMIN/GLOBULIN RATIO 1.5 (1.0-2.2); BILIRUBIN,TOTAL 0.6 mg/dL (0.2-1.0); CALCIUM 9.8 mg/dL (8.5-10.3); CREATININE 0.9 mg/dL (0.6-1.3); POTASSIUM 3.9 mmol/L (3.5-4.5); TOTAL PROTEIN 7.6 g/dL (6.4-8.9)
[2023-07-14] MEDS ORDERED: iohexoL-300 100 ML VIAL IVP ONE (21:06)
--- NOTE | 2023-07-14 21:14 | CT Report ---
PROCEDURE: Head WO INDICATIONS: Neuro deficit, acute, stroke suspected TECHNIQUE: Noncontrast 4.5 mm thick angled axial sections acquired from the foramen magnum to the vertex. For r adiation dose reduction, the following was used: automated exposure control, adjustment of mA and/or kV according to patient size. COMPARISON: CT head 08/25/2022. FINDINGS: Image quality: Excellent. CSF spaces: Basal cisterns are patent. No extra-axial fluid collections. Ventricles are normal in size and shape. Brain: Redemonstration of white matter hypoattenuation within the right posterior frontal and pariet al lobes. No midline shift. No intracranial masses or hemorrhage. Dickens-white matter interface is no rmal. Skull and face: Calvarium and visualized facial bones are intact, without suspicious lesions. Sinuses: Visualized sinuses and mastoids are clear. IMPRESSION: 1.No acute intracranial pathology. 2.Stable appearance of white matter hypoattenuation within the right posterior frontal and parietal l obes, most consistent with vasogenic edema. Reviewed by: Roland Lopez MD on 07/14/2023 9:12 PM PST Approved by: Roland Lopez MD on 07/14/2023 9:12 PM PST Station ID: [id number]
--- NOTE | 2023-07-14 21:20 | CT Report ---
PROCEDURE: Angio Head/Neck INDICATIONS: cva sx TECHNIQUE: Pre-contrast 4.5 mm thick sections acquired from the foramen magnum to the vertex. After the adminis tration of intravenous contrast, 1 mm thick sections acquired from the aortic arch through the [place]. Post-contrast 4.5 mm thick sections then re-acquired from the foramen magnum to the vert ex. 3-dimensional cekwekp-jtlyujdzz-uajszjxqbo (MIP) and/or volume rendering reformats were acquired of the central intracranial vasculature and neck separately. For radiation dose reduction, the foll owing was used: automated exposure control, adjustment of mA and/or kV according to patient size. CONTRAST: IV contrast COMPARISON: CT head, MRI brain 08/25/2022 FINDINGS: Image quality: Excellent. BRAIN: Please refer to same day CT of the head. HEAD CT ANGIOGRAPHY: Anterior circulation: Intracranial internal carotid arteries are normal in size and flow with mild a therosclerosis. The flow within the paired anterior cerebral arteries is normal and symmetric. The flow within the middle cerebral arteries is normal and symmetric. The anterior communicating artery is seen. No aneurysms are seen. Posterior circulation: Visualized portions of the vertebral arteries demonstrate normal caliber, and join to form a normal appearing basilar artery. Flow within the posterior cerebral arteries is norm al and symmetric. No aneurysms are seen. NECK CT ANGIOGRAPHY: Carotid system: The great vessels demonstrate a conventional anatomy as they arise from the aortic a rch. The origins of the common carotid arteries appear patent. The common carotid arteries demonstr ate normal caliber and courses. The bifurcation regions are both widely patent. The internal caroti d arteries demonstrate normal calibers and courses. Posterior circulation: The origins of the vertebral arteries both appear widely patent. The more klein perior extracranial portions of both vertebral arteries also demonstrate normal courses and calibers. They join to form a normal appearing basilar artery. Soft tissues: Visualized neck soft tissues demonstrate no suspicious abnormalities. Bones: No suspicious bony lesions. Visualized cervical spine appears normally aligned. Mild degene rative changes of the spine. IMPRESSION: The arteries of the head and neck are patent without hemodynamically significant stenosis, large vess el occlusion, aneurysm or AVM. The estimate of stenosis included in the report of the imaging study was calculated using the NASCET method Reviewed by: Roland Lopez MD on 07/14/2023 9:19 PM PST Approved by: Roland Lopez MD on 07/14/2023 9:19 PM [facility] Station ID: [id number]
[2023-07-14 22:51] VITALS: BP 128/90; O2SAT 98
== END 2023-07-14 22:30 | disposition home or self-care (01) ==
LOC: EDUNIT# → ED 18:41
DX: R20.2 Paresthesia of skin (principal); I69.354 Hemiplegia and hemiparesis following cerebral infarction affecting left non-dominant side
CPT/HCPCS: 36415; 70450; 70496; 70498; 80053; 83690; 85025; 85610; 93005; 99283; 99284; Q9967

== ENCOUNTER 2023-08-30 19:30 | Outpatient (CLI) | payer OTHER | END 2023-08-30 19:31 | disposition home or self-care (01) | LOC: SC 19:30 | PROVIDERS: ATTEND Nurse Practitioner Family | DX: G47.33 Obstructive sleep apnea (adult) (pediatric) (principal); G47.61 Periodic limb movement disorder | CPT/HCPCS: 95811 ==

== ENCOUNTER 2023-09-06 12:43 | Outpatient (CLI) | payer OTHER ==
--- NOTE | 2023-09-06 13:25 | Sleep Patient Instructions ---
Sleep Center Visit Summary - Patient Visit Information Reason for Visit: Titration study followup - Patient Instructions Additional Instructions: You were here for follow up of Titraion study. You will be started on CPAP therapy with pressure at 10-15 cmH2O. Please let us know if the pressure change is uncomfortable and we can make further adjustments of the pressure. You should follow up with sleep care in 1-2 months. You may contact us sooner for any questions or concerns. - Clinic Information Contact: [facility] [address] [place] [address] [email or web address] T: [phone]
--- NOTE | 2023-09-06 13:35 | SLEEP CARE CONSULTATION ---
Information from patient questionnaire entered by Ambreen Melendez. I have reviewed and concur with the information entered by Ambreen Melendez. This document represents the service I personally performed and the decisions made by , Luz Johns ARNP. History of Present Illness Service Date and Time: 09/06/2023 1243 Accompanied by: Marques Ramos Initial [place] Sleepiness Scale score: 6 (06/17/23) Current [place] Sleepiness Scale score: 5 (09/06/23) Additional HPI information: MADI RIVERA returns for follow up of the sleep study with a manual CPAP titration study performed on 08/30/23. The patient was informed of the following polysomnography findings: CPAP was initiated at 7 cmH2O and titrated up to CPAP at 17 cmH2O. CPAP at 13 cmH2O appeared to be optimal (AHI of 3,2 per hour on the pressure). There was supine REM sleep on the pressure. Oxygen saturation was minimally low. Lower CPAP settings allowed slightly more frequent residual respiratory events. The patient appeared to have tolerated positive airway pressure therapy very well. I explained how CPAP machine works and what to expect when using the machine. Using CPAP every night in order to get used to it was emphasized. Patient advis ed to put CPAP mask on before getting into bed so as not to fall asleep without CPAP. If snoring or perceives is not getting enough air or too much air from the machine, notify this office. Patient was cautioned about risks of drowsy driving until sleepiness symptoms resolve. Sleep Study - Results Type of Sleep Study: Home sleep study (TITRATION F/U COMPLETED ON 08/30/23) Prior sleep studies: No Polysomnography/Home Sleep Study results: IMPRESSION: The quality of the study is good. CPAP was initiated at 7 cmH2O and titrated up to CPAP at 17 cmH2O. CPAP at 13 cmH2O appeared to be optimal (AHI of 3,2 per hour on the pressure). There was supine REM sleep on the pressure. Oxygen saturation was minimally low. Lower CPAP settings allowed slightly more frequent residual respiratory events. The patient appeared to have tolerated positive airway pressure therapy very well. The patients sleep efficiency was normal. The sleep architecture was relatively normal as well considering the first night effect. There was mild periodic leg movement of sleep not associated with sleep fragmentation. Cardiac rhythm was normal sinus rhythm without significant arrhythmia. No abnormal behavior (parasomnia) observed during the night Allergies and Home Medications Known drug allergies: No Drug allergies reviewed: Yes Home medication list reviewed: Yes (no changes) Allergy and home medication list: Allergies No Known Drug Allergies Allergy (Verified 09/06/23 12:32) Review of Systems Review of systems same as previous: Yes (NO CHANGE) Physical Exam Vital signs obtained and entered by: AMBREEN Goldsmith MA Blood Pressure: 134/89 (RIGHT ARM) Cuff size: regular Heart Rate: 103 O2 Saturation: 98 Height: 5 ft 9 in Weight: 210 lb Body Mass Index: 31.0 BMI Classification: Obese Impression and Plan 1. Obstructive Sleep Apnea-Hypopnea Syndrome, very severe. He returns to office after titration study to find optimal pressure to control sleep apnea. His optimal pressure was noted to be 13 cmH2O. The patients pressure will be changed to autoCPAP 10-15 cmH20. Patient advised to contact me if pressure change is uncomfortable so that it can be adjusted. Goals for apnea control discussed. Positive pressure therapy could benefit hypertension, cerebrovascular disease (stroke), diabetes, depression and seizures. He was sent a machine by the [facility] and needs someone to show him how to set it up. I adjusted the pressure to the 10-15 cmH2O and reviewed how to put together and use his machine. Compliance guidelines also reviewed. A copy of compliance guidelines will be given for reference at check out. He will follow up in 1-2 months for compliance visit. He voiced understanding and agreement. 2. Obesity, unspecified. Currently patients BMI is 31. Obesity increases the risk of apnea, CPAP pressure requirements and overall health risks especially cardiovascular and diabetes. Thus patient is advised to lose weight. * Start using auto CPAP pressure at 10-15 cmH2O * Change to full face mask, F&P Vitera full face mask, medium cushion * Notify me if snoring with mask or feeling that the pressure is too much or too little * Attempt to lose weight * Call this office if any problems using CPAP * Return for follow up in 1-2 months, or sooner if concerns arise Adjust device pressure to (cmH2O): 10-15 Counseling Topics: Weight loss health impact Prescriptions: Other (mask change to full face mask, F&P Vitera) Follow up with Sleep Care in: 1-2 months Visit Type: In Office Time Spent with Patient (minutes): 31 Provider Statement: I spent 100% of the Face to Face Visit with the patient with greater than 50% spent counseling the patient and coordination of care.
[2023-09-06 13:37] VITALS: BP 134/89; O2SAT 98
== END 2023-09-06 12:44 | disposition home or self-care (01) ==
LOC: SC 12:43
PROVIDERS: ATTEND Nurse Practitioner Family
DX: G47.33 Obstructive sleep apnea (adult) (pediatric) (principal); E66.9 Obesity, unspecified; Z68.31 Body mass index [BMI] 31.0-31.9, adult
CPT/HCPCS: 99212; 99213

== ENCOUNTER 2024-02-22 14:52 | Outpatient (CLI) | payer OTHER ==
--- NOTE | 2024-02-22 15:20 | Sleep Patient Instructions ---
Sleep Center Visit Summary - Patient Visit Information Reason for Visit: 3-month follow-up - Patient Instructions Additional Instructions: You were here for follow up of CPAP therapy. You will be continued on CPAP therapy with pressure at 10-15 cmH2O. You should follow up with sleep care in 12 months. You may contact us sooner for any questions or concerns. - Clinic Information Contact: [facility] [address] [place] [address] [email or web address] T: [phone]
--- NOTE | 2024-02-22 15:24 | SLEEP CARE CONSULTATION ---
Information from patient questionnaire entered by Ambreen Melendez. I have reviewed and concur with the information entered by Ambreen Melendez. This document represents the service I personally performed and the decisions made by , Luz Johns ARNP. History of Present Illness Service Date and Time: 02/22/2024 1452 Previous diagnosis: Very Severe, Obstructive Sleep Apnea-Hypopnea Syndrome AHI: 73 (08/30/2023) Reason for follow up: three month (F/U) Accompanied by: Richard lenz Equipment type: CPAP (RESMED Airsense 11, s/u 09/06/2023, NEED MACHINE) Equipment obtained from: Other ([facility], getting supplies) Mask style: Full face Backup mask available: Yes (old mask) Last cushion change: 1 month Prior sleep studies: No Type of Sleep Study: Home sleep study (TITRATION F/U COMPLETED ON 08/30/23) HPI additional information: MADI RIVERA was diagnosed to have very severe, AHI 73, obstructive sleep apnea-hypopnea syndrome and returned today for CPAP therapy three month follow- up. Sleep Study - Results Type of Sleep Study: Home sleep study (TITRATION F/U COMPLETED ON 08/30/23) Prior sleep studies: No CPAP Compliance Data - Data Reviewed with Patient Average duration of nightly device use: 6 HRS 47 MINS Compliance rate %: 88 (09/03/23-12/01/23; 87/90 days used) Current pressure setting (cmH2O): 10-15 Average residual AHI: 3.0 Central apnea: 0.3 Obstructive apnea: 0.8 Hypopnea: 1.5 Subjective Patient concerns: denies: aerophagia, mask discomfort, air blowing in eyes, mask leak noise, condensation in mask/hose, nasal congestion, dry mouth, nose, throat, epistaxis Observed to snore while using device: No Current pressure setting perceived as: comfortable On therapy, patient: reports: sleeping better, awakening more refreshed, being more awake and alert during the day, more rested overall. denies: drowsiness while driving (does not drive) Initial [place] Sleepiness Scale score: 6 (06/17/23) Current [place] Sleepiness Scale score: 4 (02/22/24) Allergies and Home Medications Known drug allergies: No Drug allergies reviewed: Yes Home medication list reviewed: Yes (no changes) Allergy and home medication list: Allergies No Known Drug Allergies Allergy (Verified 02/22/24 14:59) Review of Systems Review of systems same as previous: Yes (NO CHANGE) Physical Exam Vital signs obtained and entered by: AMBREEN Goldsmith MA Blood Pressure: 153/92 (LEFT ARM) Cuff size: long Heart Rate: 106 O2 Saturation: 98 Height: 5 ft 9 in Weight: 247 lb Body Mass Index: 36.4 BMI Classification: Obese Impression and Plan 1. Obstructive Sleep Apnea-Hypopnea Syndrome, severe, with good treatment compliance and good apnea control. On CPAP therapy, the patient has better sleep quality and is more rested overall. He has significant improvement of his sleep apnea and is satisfied with current CPAP therapy. He states he puts it on every night and feels rested in the mornings. Patient denies problems with oral dryness, nasal congestion, epistaxis, skin irritation or aerophagia. He is comfortable with CPAP use and we will follow-up with him next year. Patient's apnea severity and rationale for treatment to reduce apnea, improve sleep quality and reduce cardiovascular and cerebrovascular events was reviewed. I also reviewed the benefit of consistent device use of CPAP for hypertension, cerebrovascular disease, arrhythmia, diabetes, depression, seizures. 2. Obesity, unspecified. Currently patients BMI is 36.4. Obesity increases the risk of apnea, CPAP pressure requirements and overall health risks especially cardiovascular and diabetes. Thus patient is advised to lose weight. * Continue auto CPAP pressure at 10-15 cmH2O * Notify me if snoring with mask or feeling that the pressure is too much or too little * Attempt to lose weight * Call this office if any problems using CPAP * Return for follow up in 12 months, or sooner if concerns arise Counseling Topics: Spare mask, Weight loss health impact Follow up with Sleep Care in: 1 year Visit Type: In Office Time Spent with Patient (minutes): 20 Provider Statement: I spent 100% of the Face to Face Visit with the patient with greater than 50% spent counseling the patient and coordination of care.
[2024-02-22 15:29] VITALS: BP 153/92; O2SAT 98
== END 2024-02-22 14:53 | disposition home or self-care (01) ==
LOC: SC 14:52
PROVIDERS: ATTEND Nurse Practitioner Family
DX: G47.33 Obstructive sleep apnea (adult) (pediatric) (principal); E66.9 Obesity, unspecified; Z68.36 Body mass index [BMI] 36.0-36.9, adult
CPT/HCPCS: 99212; 99213